=== PATIENT | female | born 1960 | race Caucasian/White ===

== ENCOUNTER → 2016-11-20 | Outpatient (CLI) | payer MEDICAID ==
[~2016-11-20] MED LIST: ADDERALL 30 MG30 MG PO; ADDERALL20 MG PO; GILENYA0.5 MG PO; OMNICEF DPS300 MG PO; PRISTIQ ER100 MG PO; PRISTIQ50 MG PO; SYNTHROID DPS0.1 MG PO
== END | disposition home or self-care (01) ==
LOC: RAD.S 10-24 12:20 → PTH.S 11-13 07:30
DX: G35 Multiple sclerosis (principal); E55.9 Vitamin D deficiency, unspecified; K76.89 Other specified diseases of liver; M47.892 Other spondylosis, cervical region; M47.894 Other spondylosis, thoracic region; D18.03 Hemangioma of intra-abdominal structures; R90.89 Other abnormal findings on diagnostic imaging of central nervous system; Z92.29 Personal history of other drug therapy